=== PATIENT | female | born 1965 | race Caucasian/White ===

== ENCOUNTER 2017-08-18 17:51 | Emergency (ER) | payer MEDICAID ==
[~2017-08-18] VITALS: Ht 160 cm; Wt 61.8 kg
[2017-08-18 18:09] VITALS: BP 118/75
--- NOTE | 2017-08-18 18:16 | NUR ---
AFTER PROVIDING URINE SAMPLE PT AMBULATES BACK TO THE LOBBY
[2017-08-18 22:18] LABS: APPEARANCE,URINE CLEAR (CLEAR); BILIRUBIN,URINE NEGATIVE (NEGATIVE); BLOOD, URINE NEGATIVE (NEGATIVE); LEUKOCYTE ESTERASE ,URINE NEGATIVE (NEGATIVE); NITRITE, URINE NEGATIVE (NEGATIVE); UGLUCOSE NEGATIVE (NEGATIVE)
[2017-08-18 22:19] LABS: COLOR,URINE STRAW (YELLOW)
--- NOTE | 2017-08-18 22:30 | NUR ---
PATIENT AMBULATED TO BED 1
--- NOTE | 2017-08-18 23:05 | NUR ---
PATIENT PRESENTS TO ED WITH LOWER ABDOMINAL PAIN, LABIAL SWELLING, PAINFUL URINATION X2 MONTHS. PT DENIES V/D; SKIN IS PINK/WARM/DRY; AAOX4 WITH EVEN AND STEADY GAIT; LUNGS CLEAR BL; HR EVEN AND REGULAR; PT DENIES ANY FEVER, CP, SOB, OR COUGH AT THIS TIME; PATIENT STATES PAIN OF 8/10 AT THIS TIME; VSS; PATIENT POSITIONED FOR COMFORT; HOB ELEVATED; BEDRAILS UP X1; BED DOWN. ER MD MADE AWARE OF PT STATUS.
[2017-08-19 03:22] VITALS: BP 118/75
[2017-08-21 06:17] LABS: CHLAMYDIA TRACHOMATIS AMP DNA Negative (Negative)
== END 2017-08-19 03:22 | disposition home or self-care (01) ==
LOC: MED 17:51
DX: K59.00 Constipation, unspecified (principal); N39.0 Urinary tract infection, site not specified; N76.0 Acute vaginitis; Z88.5 Allergy status to narcotic agent
CPT/HCPCS: 36415; 74176; 76856; 81003; 87210; 99285; Q0092; 87491

== ENCOUNTER 2017-08-26 08:10 | Emergency (ER) | payer MEDICAID ==
[~2017-08-26] VITALS: Ht 162.6 cm; Wt 60.3 kg
[2017-08-26 08:13] VITALS: BP 101/51
[2017-08-26 09:14] VITALS: BP 105/50
== END 2017-08-26 09:15 | disposition home or self-care (01) ==
LOC: MED 08:10
DX: H60.92 Unspecified otitis externa, left ear (principal); Z88.5 Allergy status to narcotic agent
CPT/HCPCS: 99283

== ENCOUNTER 2017-10-13 18:45 | Emergency (ER) | payer MEDICAID ==
[~2017-10-13] VITALS: Ht 160 cm; Wt 60.8 kg
[2017-10-13 18:57] VITALS: BP 122/69
--- NOTE | 2017-10-13 19:04 | NUR ---
AFTER PROVIDING URINE SAMPLE PT AMBULATES TO BED 7
--- NOTE | 2017-10-13 19:10 | NUR ---
PATIENT PRESENTS TO ED WITH ABDOMINAL PAIN X2 WEEKS INTERMITTENTLY. PT DENIES N/V/D; SKIN IS PINK/WARM/DRY; AAOX4 WITH EVEN AND STEADY GAIT; LUNGS CLEAR BL; HR EVEN AND REGULAR; PT DENIES ANY FEVER, CP, SOB, OR COUGH AT THIS TIME; PATIENT STATES SHARP PAIN OF 8/10 AT THIS TIME WORSENING WHILE SITTING; PATIENT STATES LBM TODAY AT 1PM; PATIENT STATES SHE HAS A REFERRAL TO A GI DOCTOR FOR LATER THIS MONTH FOR "STUDIES" BUT DOES NOT RECALL WHAT THE STUDIES WILL BE; VSS; PATIENT POSITIONED FOR COMFORT; HOB ELEVATED; BEDRAILS UP X1; BED DOWN. ER MD MADE AWARE OF PT STATUS.
[2017-10-13] MEDS ORDERED: FAMOTIDINE 20 MG TAB PO ONE (20:10)
--- NOTE | 2017-10-13 20:52 | NUR ---
LAB AT [facility]
[2017-10-13 20:58] LABS: BASOPHILS % (AUTO) 0.6 % (0.0-2.0); EOSINOPHILS # (AUTO) 0.2 K/uL (0-0.4); HEMATOCRIT 39.9 % (36-48); HEMOGLOBIN 13.1 g/dL (12.0-16.0); LYMPHOCYTES # (AUTO) 2.8 K/uL (2.5-16.5); LYMPHOCYTES % (AUTO) 36.3 % (20.5-51.1); MEAN CORPUSCULAR HEMOGLOBIN 29 pg (27-31); MEAN CORPUSCULAR HGB CONC 33 g/dL (33-37); MEAN CORPUSCULAR VOLUME 86.8 fL (80-94); MONOCYTES # (AUTO) 0.4 K/uL (0.8-1.0); MONOCYTES % (AUTO) 5.6 % (1.7-9.3); NEUTROPHILS # (AUTO) 4.3 K/uL (1.8-7.7); NEUTROPHILS % (AUTO) 55.5 % (42.2-75.2); PLATELET COUNT (AUTO) 225 K/uL (140-450); WHITE BLOOD COUNT (AUTO) 7.7 K/uL (4.8-10.8)
[2017-10-13 21:15] LABS: BILIRUBIN,URINE NEGATIVE (NEGATIVE); BLOOD, URINE NEGATIVE (NEGATIVE); COLOR,URINE YELLOW (YELLOW); LEUKOCYTE ESTERASE ,URINE 1+ (NEGATIVE); NITRITE, URINE NEGATIVE (NEGATIVE); UGLUCOSE NEGATIVE (NEGATIVE)
[2017-10-13 21:17] LABS: APPEARANCE,URINE HAZY (CLEAR)
[2017-10-13 21:17] LABS: ANION GAP 11.8 (8-16); CARBON DIOXIDE 28.5 mmol/L (21-32); POTASSIUM 4.3 mmol/L (3.5-5.1)
[2017-10-13 21:24] LABS: ALBUMIN 3.9 g/dL (3.4-5.0); TOTAL BILIRUBIN 0.2 mg/dL (0.0-1.0)
[2017-10-13 21:34] LABS: RBC,URINE NONE SEEN /HPF (0-5); WBC,URINE 20-60 /HPF (0-5)
[2017-10-13 21:56] VITALS: BP 122/69
--- NOTE | 2017-10-13 21:56 | NUR ---
Patient discharged with v/s stable. Written and verbal after care instructions given and explained. Patient alert, oriented and verbalized understanding of instructions. Ambulatory with steady gait. All questions addressed prior to discharge. ID band removed. Patient advised to follow up with PMD. Rx of ZANTAC given. Patient educated on indication of medication including possible reaction and side effects. Opportunity to ask questions provided and answered.
== END 2017-10-13 21:56 | disposition home or self-care (01) ==
LOC: MED 18:45
DX: K27.9 Peptic ulcer, site unspecified, unspecified as acute or chronic, without hemorrhage or perforation (principal); R10.9 Unspecified abdominal pain; Z88.5 Allergy status to narcotic agent
CPT/HCPCS: 36415; 80053; 81001; 81025; 82150; 83690; 85025; 87086; 99285

== ENCOUNTER 2018-06-16 08:22 | Emergency (ER) | payer MEDICAID ==
[~2018-06-16] VITALS: Ht 160 cm; Wt 61.7 kg
--- NOTE | 2018-06-16 08:25 | NUR ---
PATIENT AMBULATED TO BED 11 AT THIS TIME.
[2018-06-16 08:32] VITALS: BP 157/72
[2018-06-16] MEDS ORDERED: LORazepam 2 MG/ML VIAL IVP ONE (09:00)
[2018-06-16] MEDS ORDERED: KETOROLAC 30 MG/ML VIAL IVP ONE (09:00)
--- NOTE | 2018-06-16 09:15 | NUR ---
REPORT FROM CRYSTAL GARCIA. PT 53 YO FEMALE BIB SELF FOR CHEST PAIN SUBSTERNAL TO RIGHT SIDE 8/10 PAIN. PT DENIES N/V/D; SKIN IS INTACT, PINK/WARM/DRY; AAOX4, PERRL, WITH EVEN AND STEADY GAIT; LUNGS CLEAR BL, BREATHING UNLABORED; HR EVEN AND NSR ON MONITOR, BL PERIPHERAL PULSES PRESENT; BS ACTIVE X4, NO TENDERNESS TO PALPATION, NO HEPATOSPLENOMEGALLY PALPATED, RESONANT TO PERCUSSION; PT DENIES ANY FEVER, CP, SOB, OR COUGH AT THIS TIME; PT STATES 8/10 PAIN AT THIS TIME; VSS; PATIENT POSITIONED FOR COMFORT; HOB ELEVATED; BEDRAILS UP X2; BED DOWN.
[2018-06-16 09:31] LABS: BASOPHILS % (AUTO) 0.6 % (0.0-2.0); EOSINOPHILS # (AUTO) 0.1 K/uL (0-0.4); EOSINOPHILS % (AUTO) 1.6 % (0.0-4.0); HEMATOCRIT 39.1 % (36-48); HEMOGLOBIN 13.1 g/dL (12.0-16.0); LYMPHOCYTES % (AUTO) 32.5 % (20.5-51.1); MEAN CORPUSCULAR HEMOGLOBIN 29 pg (27-31); MEAN CORPUSCULAR HGB CONC 33 g/dL (33-37); MEAN CORPUSCULAR VOLUME 85.2 fL (80-94); MONOCYTES # (AUTO) 0.3 K/uL (0.8-1.0); MONOCYTES % (AUTO) 5.3 % (1.7-9.3); NEUTROPHILS # (AUTO) 3.8 K/uL (1.8-7.7); PLATELET COUNT (AUTO) 229 K/uL (140-450); RED BLOOD CELL COUNT(AUTO) 4.59 MIL/uL (4.20-5.40); RED CELL DISTRIBUTION WIDTH 12.9 % (11.6-13.7); WHITE BLOOD COUNT (AUTO) 6.3 K/uL (4.8-10.8)
[2018-06-16 09:45] LABS: ANION GAP 12.1 (8-16); CARBON DIOXIDE 27.5 mmol/L (21-32); CREATININE 0.8 mg/dL (0.6-1.3); POTASSIUM 3.6 mmol/L (3.5-5.1)
[2018-06-16 09:52] LABS: ALBUMIN 3.7 g/dL (3.4-5.0); TOTAL BILIRUBIN 0.4 mg/dL (0.0-1.0)
[2018-06-16 09:56] LABS: D-DIMER < 100 ng/ml (0-400)
[2018-06-16 09:57] LABS: PROTHROMBIN TIME 10.1 secs (10.8-13.4)
--- NOTE | 2018-06-16 10:00 | NUR ---
PT ON STRETCHER IN SUPINE POSITION WITH EYES OPEN, ALERT AND ORIENTED X 4, RESPIS E/U, ADMITS TO STILL HAVING PAIN, EDMD AWARE. NO IDENTIFIED REQUESTS AT THIS TIME.
--- NOTE | 2018-06-16 11:00 | NUR ---
PT ON STRETCHER IN SUPINE POSITION WITH EYES OPEN, ALERT AND ORIENTED X 4, RESPIS E/U, ADMITS TO HAVING DECREASED PAIN TO A TOLERABLE LEVEL, EDMD AWARE. NO IDENTIFIED REQUESTS AT THIS TIME.
[2018-06-16 12:42] VITALS: BP 120/51
--- NOTE | 2018-06-16 12:50 | NUR ---
Patient discharged with v/s stable. Written and verbal after care instructions given and explained. Patient alert, oriented and verbalized understanding of instructions. Ambulatory with steady gait. All questions addressed prior to discharge. ID band removed. Patient advised to follow up with PMD. Rx of NAPROSYN AND VISTARIL given. Patient educated on indication of medication including possible reaction and side effects. Opportunity to ask questions provided and answered.
== END 2018-06-16 12:50 | disposition home or self-care (01) ==
LOC: MED 08:22
DX: F41.0 Panic disorder [episodic paroxysmal anxiety] (principal); F44.89 Other dissociative and conversion disorders; I10 Essential (primary) hypertension; Z88.5 Allergy status to narcotic agent
CPT/HCPCS: 36415; 71045; 80053; 81002; 81025; 83880; 84484; 85025; 85379; 85610; 85730; 93005; 96374; 99284; J1885; Q0092; J2060

== ENCOUNTER 2019-05-15 14:17 | Emergency (ER) | payer MEDICAID ==
[~2019-05-15] VITALS: Ht 160 cm; Wt 61.2 kg
[2019-05-15 14:32] VITALS: BP 111/68
--- NOTE | 2019-05-15 14:37 | NUR ---
URINE CUP HANDED TO PT FOR SAMPLE
--- NOTE | 2019-05-15 14:59 | NUR ---
PT AMBULATED TO CHAIR C.
--- NOTE | 2019-05-15 15:32 | NUR ---
54 Y/O F C/C COLD SYMPTOMS X3 WEEKS. PER PT ALSO COMPLAINTS OF SORE THROAT/CHILLS. PT NOT UP TO DATE WITH FLU SHOT/NO ONE SICK AT HOME. PT ALLERGIES TO CODEINE, FLEXERIL. NO HX. NO RX. C/C OF NAUSEA PER PT "COMES AND GOES". DENIES V/D. PT ON CHAIR.
[2019-05-15 15:38] LABS: BASOPHILS % (AUTO) 0.5 % (0.0-2.0); EOSINOPHILS # (AUTO) 0.1 K/uL (0-0.4); EOSINOPHILS % (AUTO) 1.7 % (0.0-4.0); HEMATOCRIT 38.7 % (36-48); HEMOGLOBIN 12.7 g/dL (12.0-16.0); LYMPHOCYTES # (AUTO) 2.2 K/uL (2.5-16.5); MEAN CORPUSCULAR HEMOGLOBIN 28 pg (27-31); MEAN CORPUSCULAR HGB CONC 33 g/dL (33-37); MEAN CORPUSCULAR VOLUME 86.6 fL (80-94); MONOCYTES # (AUTO) 0.4 K/uL (0.8-1.0); MONOCYTES % (AUTO) 4.6 % (1.7-9.3); NEUTROPHILS # (AUTO) 5.2 K/uL (1.8-7.7); NEUTROPHILS % (AUTO) 65.2 % (42.2-75.2); PLATELET COUNT (AUTO) 252 K/uL (140-450); RED BLOOD CELL COUNT(AUTO) 4.46 MIL/uL (4.20-5.40); RED CELL DISTRIBUTION WIDTH 13.1 % (11.6-13.7); WHITE BLOOD COUNT (AUTO) 7.9 K/uL (4.8-10.8)
[2019-05-15 15:54] LABS: ANION GAP 13.2 (8-16); CARBON DIOXIDE 29.9 mmol/L (21-32); POTASSIUM 4.1 mmol/L (3.5-5.1)
[2019-05-15 15:54] LABS: APPEARANCE,URINE CLEAR (CLEAR); BILIRUBIN,URINE NEGATIVE (NEGATIVE); BLOOD, URINE NEGATIVE (NEGATIVE); COLOR,URINE YELLOW (YELLOW); LEUKOCYTE ESTERASE ,URINE 1+ (NEGATIVE); NITRITE, URINE NEGATIVE (NEGATIVE); UGLUCOSE NEGATIVE (NEGATIVE)
[2019-05-15 16:04] LABS: ALBUMIN 3.7 g/dL (3.4-5.0); FREE T4 (FREE THYROXINE) 0.97 ng/dL (0.76-1.46); THYROID STIMULATING HORMONE 0.81 uIU/mL (0.34-3.74); TOTAL BILIRUBIN 0.2 mg/dL (0.0-1.0)
[2019-05-15 16:22] VITALS: BP 120/62
[2019-05-15 16:34] LABS: RBC,URINE NONE SEEN /HPF (0-5)
== END 2019-05-15 16:22 | disposition home or self-care (01) ==
LOC: MED 14:17
DX: R53.1 Weakness (principal); N39.0 Urinary tract infection, site not specified; Z88.5 Allergy status to narcotic agent; Z88.8 Allergy status to other drugs, medicaments and biological substances; Z98.890 Other specified postprocedural states
CPT/HCPCS: 36415; 80053; 81001; 84439; 84443; 85025; 87086; 87186; 99283

== ENCOUNTER 2020-10-25 22:22 | Emergency (ER) | payer MEDICAID ==
[~2020-10-25] VITALS: Ht 160 cm; Wt 64.0 kg
[2020-10-25 22:35] VITALS: BP 130/82
[2020-10-25 22:38] VITALS: BP 130/82
--- NOTE | 2020-10-25 22:38 | NUR ---
To ED bed 12.
--- NOTE | 2020-10-25 23:05 | NUR ---
X-Ray at bedside.
[2020-10-25] MEDS ORDERED: KETOROLAC 30 MG/ML VIAL IM ONE (23:20)
[2020-10-25] MEDS ORDERED: NAPR-54 PO (23:48)
--- NOTE | 2020-10-26 00:06 | NUR ---
d/c with VSS. d/c education given. opportunity to ask questions given and answered. rx of naprosyn given.
== END 2020-10-26 00:06 | disposition home or self-care (01) ==
LOC: MED 22:22
DX: S90.121A Contusion of right lesser toe(s) without damage to nail, initial encounter (principal); X58.XXXA Exposure to other specified factors, initial encounter; Y93.9 Activity, unspecified; Y92.89 Other specified places as the place of occurrence of the external cause; Y99.8 Other external cause status; Z88.0 Allergy status to penicillin; Z79.899 Other long term (current) drug therapy
CPT/HCPCS: 73630; 96372; 99283; J1885

== ENCOUNTER 2021-10-18 18:28 | Inpatient (IN) | payer MEDICAID ==
[~2021-10-18] VITALS: Ht 160 cm; Wt 64.9 kg
[~2021-10-18 18:28] MED LIST: NAPR-54 PO
[2021-10-18 18:42] VITALS: BP 122/50
--- NOTE | 2021-10-18 18:48 | NUR ---
PAULO. HANDED ON URINE CUP.
[2021-10-18 20:20] LABS: BASOPHILS % (AUTO) 0.2 % (0.0-2.0); EOSINOPHILS % (AUTO) 0.1 % (0.0-4.0); HEMATOCRIT 39.6 % (36-48); HEMOGLOBIN 13.1 g/dL (12.0-16.0); LYMPHOCYTES # (AUTO) 1.1 K/uL (2.5-16.5); LYMPHOCYTES % (AUTO) 7.1 % (20.5-51.1); MEAN CORPUSCULAR HEMOGLOBIN 28 pg (27-31); MEAN CORPUSCULAR HGB CONC 33 g/dL (33-37); MEAN CORPUSCULAR VOLUME 85.2 fL (80-94); MONOCYTES # (AUTO) 0.3 K/uL (0.8-1.0); MONOCYTES % (AUTO) 1.9 % (1.7-9.3); NEUTROPHILS # (AUTO) 13.6 K/uL (1.8-7.7); NEUTROPHILS % (AUTO) 90.7 % (42.2-75.2); PLATELET COUNT (AUTO) 254 K/uL (140-450); RED BLOOD CELL COUNT(AUTO) 4.65 MIL/uL (4.20-5.40); RED CELL DISTRIBUTION WIDTH 13.4 % (11.6-13.7)
[2021-10-18 20:34] LABS: ALBUMIN 4.1 g/dL (3.4-5.0); ANION GAP 9.7 (8-16); CARBON DIOXIDE 30.2 mmol/L (21-32); CREATININE 0.8 mg/dL (0.6-1.3); POTASSIUM 3.9 mmol/L (3.5-5.1); TOTAL BILIRUBIN 0.3 mg/dL (0.0-1.0)
[2021-10-18] MEDS ORDERED: MORPHINE SULFATE 4 MG/ML SYR IVP ONE (20:50)
[2021-10-18] MEDS ORDERED: NACL 0.9% 1,000 ML IV ONE ×2 (20:50→23:55)
[2021-10-18] MEDS ORDERED: DICYCLOMINE HCL LIQUID 20 MG, ALUMINUM HYD/MAG/SIMETHICONE 30 ML, LIDOCAINE VISCOUS 2% ... PO ONE ×3 (20:50)
[2021-10-18] MEDS ORDERED: ONDANSETRON 4 MG ODT PO ONE (20:50)
--- NOTE | 2021-10-18 20:51 | NUR ---
PT AMBULATED TO BED WITH NURSE
--- NOTE | 2021-10-18 20:55 | NUR ---
56 Y.O F BIB SELF C/O MID ABD PAIN, VOMITING X TODAY. PT STATED SHE HAD SOUP AROUND 1400 AND THEN TOOK SOME HERBAL VITAMINS AND MEDICATION THEN FELT THE ABDOMEN PAIN AT A 9. TH PAIN IS LOCALIZED TO HER UPPER QUADRANTS OF THE ABDOMEN. DENIES HAVING DIAHRREA, CHEST PAIN OR SOB. VITALS WNL, SKIN INTACT, NO PROBLEM URINATING AND STEADY GAIT. PT RESTING IN BED. PMH: DENIES ALLERGIES: CODEINE, CYCLOBENZAPRINE
[2021-10-18] MEDS ORDERED: DICYCLOMINE HCL LIQUID 10 MG/5 ML UDC ONE (20:59)
[2021-10-18] MEDS ORDERED: ALUMINUM HYD/MAG/SIMETHICONE 30 ML UDC ONE (20:59)
--- NOTE | 2021-10-18 22:33 | NUR ---
US AT BEDSIDE
--- NOTE | 2021-10-18 22:58 | NUR ---
ARPITA COLLECTED AND WALKED TO THE LAB.
[2021-10-18] MEDS ORDERED: MORPHINE SULFATE 4 MG/ML SYR IVP PRN ×2 (23:55)
--- NOTE | 2021-10-19 00:35 | NUR ---
Patient will be admitted to care of DR. MERCHANT. Admited to MED SURG. Will go to room 104 A. Belongings list completed. Report to
--- NOTE | 2021-10-19 00:50 | NUR ---
RECEIVED PT FROM ER NURSE, PT ARRIVED VIA GURNEY, AMBULATED TO BED ON HER OWN. AWAKE, ALERT AND ORIENTED. ON ROOM AIR, BREATHING EQUAL AND UNLABORED.SKIN WARM, DRY AND INTACT. IV ON LAC G20, FLUSHING WELL. REPORTS ABDOMINAL PAIN. PRN PAIN MEDICATION WAS GIVEN IN ER WITH A LITTLE RELIEF PER PATIENT. PLAN OF CARE DISCUSSED. MRSA SWAB DONE. ORIENTED TO ROOM AND CALL LIGHT. ALL PRECAUTIONS IN PLACE. CALL LIGHT WITHIN REACH. WILL CONTINUE TO MONITOR.
[2021-10-19 00:56] VITALS: BP 115/61
[2021-10-19] MEDS: MORPHINE SULFATE 2 MG/ML SYR IVP PRN ×2 (01:53→08:21)
--- NOTE | 2021-10-19 01:55 | NUR ---
PT CALLED AND REPORTS 9/10 ABDOMINAL PAIN. PRN PAIN MEDICATION GIVEN. WILL CONTINUE TO MONITOR.
--- NOTE | 2021-10-19 02:44 | NUR ---
PT ASLEEP. BREATHING EQUAL AND UNLABORED, NO S/SX OF DISTRESS NOTED. WILL CONTINUE TO MONITOR.
--- NOTE | 2021-10-19 07:18 | NUR ---
PT IS STABLE. NO ACUTE EVENTS THROUGHOUT THE NIGHT. ALL NEEDS MET.NO S/SX OF DISTRESS NOTED. ALL PRECAUTIONS IN PLACE. CALL LIGHT WITHIN REACH. WILL ENDORSE TO AM SHIFT NURSE.
--- NOTE | 2021-10-19 07:30 | NUR ---
RECEIVED PT CARE AND REPORT FROM YAZAN GARCIA. PT IS RESTING IN BED SEMI-FOWLERS, A&OX4, APPEARS CALM BUT IN PAIN. DENIES ANY SOB OR DISTRESS, COMPLAINS OF 7/10 SHARP PAIN IN ABDOMEN. WILL MEDICATE ORDERED. CALL LIGHT WITHIN REACH, ALL NEEDS MET AT THIS TIME. MAINTAINING NPO ORDERS.
[2021-10-19 08:00] VITALS: BP 101/47
[2021-10-19 08:11] LABS: BASOPHILS % (AUTO) 0.1 % (0.0-2.0); HEMATOCRIT 36.8 % (36-48); HEMOGLOBIN 12.2 g/dL (12.0-16.0); LYMPHOCYTES # (AUTO) 1.2 K/uL (2.5-16.5); LYMPHOCYTES % (AUTO) 9.2 % (20.5-51.1); MEAN CORPUSCULAR HEMOGLOBIN 28 pg (27-31); MEAN CORPUSCULAR HGB CONC 33 g/dL (33-37); MEAN CORPUSCULAR VOLUME 85.4 fL (80-94); MONOCYTES # (AUTO) 0.5 K/uL (0.8-1.0); MONOCYTES % (AUTO) 3.9 % (1.7-9.3); NEUTROPHILS # (AUTO) 11.5 K/uL (1.8-7.7); NEUTROPHILS % (AUTO) 86.8 % (42.2-75.2); PLATELET COUNT (AUTO) 231 K/uL (140-450); RED BLOOD CELL COUNT(AUTO) 4.31 MIL/uL (4.20-5.40); RED CELL DISTRIBUTION WIDTH 13.6 % (11.6-13.7); WHITE BLOOD COUNT (AUTO) 13.3 K/uL (4.8-10.8)
[2021-10-19 08:28] LABS: ANION GAP 8.1 (8-16); CARBON DIOXIDE 27.7 mmol/L (21-32); CREATININE 0.7 mg/dL (0.6-1.3); POTASSIUM 3.8 mmol/L (3.5-5.1)
[2021-10-19 08:34] LABS: CHOL/HDL RATIO 4.1 (1-4.5)
[2021-10-19] MEDS ORDERED: ACETAMINOPHEN 325 MG TAB PO PRN (08:45)
[2021-10-19] MEDS ORDERED: POTASSIUM CHLORIDE 10 MEQ TABER PO PRN (08:45)
[2021-10-19] MEDS ORDERED: ZOLPIDEM 5 MG TAB PO PRN (08:45)
[2021-10-19] MEDS ORDERED: guaiFENesin DM 200/20 MG-10 ML 10 ML UDC PO PRN (08:45)
[2021-10-19] MEDS ORDERED: DOCUSATE SODIUM 100 MG GELCAP PO PRN (08:45)
[2021-10-19] MEDS ORDERED: ONDANSETRON 4 MG/2 ML VIAL IM/IVP PRN (08:45)
[2021-10-19] MEDS ORDERED: HYDROcodone/APAP 7.5/325 MG 1 TAB PO PRN (08:45)
[2021-10-19] MEDS: KETOROLAC 15 MG/ML VIAL IM SCH ×2 (09:00→16:17)
[2021-10-19 09:07] LABS: PROTHROMBIN TIME 10.4 secs (10.8-13.4)
[2021-10-19 09:13] LABS: CHOL/HDL RATIO 4.1 (1-4.5); FREE T4 (FREE THYROXINE) 0.87 ng/dL (0.76-1.46); PHOSPHORUS 2.8 mg/dL (2.5-4.9); THYROID STIMULATING HORMONE 0.26 uIU/mL (0.34-3.74)
[2021-10-19] MEDS: PANTOPRAZOLE 40 MG TABEC PO SCH (09:20)
[2021-10-19] MEDS: DEXT 5% /NACL 0.9% 1,000 ML IV SCH ×2 (09:21→16:17)
--- NOTE | 2021-10-19 10:12 | NUR ---
PATIENT HAS BEEN SCREENED AND CATEGORIZED LOW NUTRITION RISK. PATIENT WILL BE SEEN WITHIN 7 DAYS OF ADMISSION. 10/25/[address]
--- NOTE | 2021-10-19 11:27 | NUR ---
DC PLANNIN YRS OLD MALE PATIENT WAS ADMITTED FROM HOME WITH A DX OF ACUTE PANCREATITIS. PATIENT HAS NO MEDICAL HISTORY. LIPASE LEVEL 9107. ABD X-RAY NEGATIVE. CT ABD/PELVIS SHOWED ENLARGED PANCREASE SUSPICIOUS FOR ACUTE PANCREATITIS . US GALLBLADDER SHOWED PANCREATIC DUCT IS DILATED. KEPT PT NPO, ADMINISTERED IVF AND TORADOL FOR PAIN. CONSULTED WITH GI DR PENNINGTON. DC PLAN TO GO HOME WHEN STABLE. CM TO FOLLOW
--- NOTE | 2021-10-19 11:48 | NUR ---
PT WAS GIVEN SPECIMEN CUP FOR URINE SPECIMEN. INSTRUCTED ON HOW TO USE AND TO CALL WHEN FINISHED.
--- NOTE | 2021-10-19 11:49 | NUR ---
PT COMPLAINING OF TIGHTNESS/HEAVINESS IN ABD. HAS A SENSATION TO PASS GAS AND HAVE BM BUT IS UNABLE TO SINCE YESTERDAY. REPORTED TO DR. SCHUSTER.
--- NOTE | 2021-10-19 11:49 | NUR ---
DC PLANNING PATIENT IS A 56 YR OLD FEMALE ADMITTED TO [facility] ON 10/19 FOR ACUTE PANCREATITIS. SHERRILL MET WITH EBONIE AT BEDSIDE TO GATHER COLLATERAL INFORMATION. PATIENT CONFIRMS LIVING IN A SINGLE STORY HOME WITH HER FAMILY; SPOUSE AND CHILDREN. PATIENT IDENTFIED EMERGENCY CONTACT AND M.D.M ADRY CRUZ () [phone]. PATIENT DENIED HAVING AD IN PLACE AND ACCEPTED AD PACKET OFFERED BY SHERRILL. PATIENT REPORTS MEETING WITH HER PCP NEEDED WITH LAST VISIT 3 WEEKS PRIOR. PATIENT REPORTS SHE HAD AN APPT WITH PCP 10/18/21 THAT NEEDED TO BE CANCELLED SHE CAME TO [facility]. PATIENT DENIES TAKING MEDICATION AT THIS TIME, HOWEVER REPORTED PICKING UP MEDICATION FROM [employer] IN [place], WHEN NEEDED. PATIENT REPORTS BEING INDEPENDENT IN ALL ACTIVITIES AND DENIES USE OF DME. PATIENT DENIES HX OF DIALYSIS OR HH. PATIENT REPORTS DC PLANS IS TO RETURN HOME WITH PROVIDING TRANSPORTATION AND FRIENDS OR FAMILY AIDING IN CARE, IF REQUIRED. SW INQUIRED ON RESOURCES NEEDED, PATIENT DECLINED AT THIS TIME.
[2021-10-19 12:57] LABS: APPEARANCE,URINE CLEAR (CLEAR); BILIRUBIN,URINE NEGATIVE (NEGATIVE); BLOOD, URINE NEGATIVE (NEGATIVE); COLOR,URINE YELLOW (YELLOW); LEUKOCYTE ESTERASE ,URINE NEGATIVE (NEGATIVE); NITRITE, URINE NEGATIVE (NEGATIVE); UGLUCOSE NEGATIVE (NEGATIVE)
[2021-10-19 13:10] LABS: OTHER CASTS, URINE None Seen /LPF (None Seen); RBC,URINE 0-5 /HPF (0-5); WBC,URINE 0-5 /HPF (0-5)
[2021-10-19 13:12] LABS: BARBITURATE, URINE NEGATIVE ng/ml (NEG <=200); BENZODIAZEPINE, URINE NEGATIVE ng/mL (NEG <=200); CANNABINOID, URINE NEGATIVE ng/mL (NEG <=50); COCAINE, URINE NEGATIVE ng/mL (NEG <=300); OPIATE, URINE POSITIVE ng/mL (NEG <=2000); PHENCYCLIDINE SCREEN,URINE NEGATIVE ng/mL (NEG <=25)
[2021-10-19 16:00] VITALS: BP 110/53
--- NOTE | 2021-10-19 17:00 | NUR ---
PT HAS CONCERNS ABOUT CARE SHE IS RECEIVING AND IS THINKING OF GOING AMA. PT EDUCATED ABOUT AMA AND PT DECIDED TO STAY. DR. SCHUSTER AWARE.
--- NOTE | 2021-10-19 17:16 | NUR ---
REPLACED D5 NS BAG AT THIS TIME.
--- NOTE | 2021-10-19 18:18 | NUR ---
PT IS RESTING IN BED SUPINE, A&OX4, APPEARS CALM. FAMILY AT BEDSIDE. NO VISIBLE S/S OF DISTRESS OR DISCOMFORT. DENIES SOB AND ONLY 3/10 PAIN IN ABD. CALL LIGHT WITHIN REACH, ALL NEEDS MET AT THIS TIME. Addendum: 10/19/21 at 1820 by Agency Nurse 15, JOSE RN WILL ENDORSE TO NOC SHIFT.
--- NOTE | 2021-10-19 20:00 | NUR ---
Patient's Plan of Care was discussed and reviewed with SITE SPECIALIST: RADU BENTON
[2021-10-20] VITALS: BP 108/65
[2021-10-20] MEDS: KETOROLAC 15 MG/ML VIAL IM SCH (00:28)
--- NOTE | 2021-10-20 06:00 | NUR ---
IS HAVING SEVERE ABDOMINAL PAIN DR MERCHANT CALLED TORADOL 15 MG PO ORDERED
[2021-10-20] MEDS ORDERED: KETOROLAC 10 MG TAB PO PRN (06:40)
--- NOTE | 2021-10-20 06:45 | NUR ---
PT WANTS TO SEE MD STATES SHE WAS NOTSEEN YESTERDAY WANTS IV TORADOL
[2021-10-20 07:29] LABS: BASOPHILS % (AUTO) 0.1 % (0.0-2.0); EOSINOPHILS # (AUTO) 0.1 K/uL (0-0.4); EOSINOPHILS % (AUTO) 0.7 % (0.0-4.0); HEMATOCRIT 34.7 % (36-48); HEMOGLOBIN 11.7 g/dL (12.0-16.0); LYMPHOCYTES # (AUTO) 1.5 K/uL (2.5-16.5); LYMPHOCYTES % (AUTO) 12.1 % (20.5-51.1); MEAN CORPUSCULAR HEMOGLOBIN 29 pg (27-31); MEAN CORPUSCULAR HGB CONC 34 g/dL (33-37); MEAN CORPUSCULAR VOLUME 86.3 fL (80-94); MONOCYTES # (AUTO) 0.6 K/uL (0.8-1.0); MONOCYTES % (AUTO) 4.8 % (1.7-9.3); NEUTROPHILS # (AUTO) 10.3 K/uL (1.8-7.7); NEUTROPHILS % (AUTO) 82.3 % (42.2-75.2); PLATELET COUNT (AUTO) 222 K/uL (140-450); RED BLOOD CELL COUNT(AUTO) 4.02 MIL/uL (4.20-5.40); RED CELL DISTRIBUTION WIDTH 13.9 % (11.6-13.7); WHITE BLOOD COUNT (AUTO) 12.5 K/uL (4.8-10.8)
[2021-10-20 07:33] LABS: ANION GAP 7.3 (8-16); CARBON DIOXIDE 29.1 mmol/L (21-32); CREATININE 0.7 mg/dL (0.6-1.3); POTASSIUM 3.4 mmol/L (3.5-5.1)
[2021-10-20 07:36] LABS: AMYLASE 298 U/L (25-115); LIPASE 1020 U/L (73-393)
[2021-10-20] MEDS ORDERED: KETOROLAC 15 MG/ML VIAL IM PRN (07:50)
[2021-10-20 08:07] LABS: T4 (THYROXINE) 7.6 ug/dL (4.5-12.0)
--- NOTE | 2021-10-20 08:12 | NUR ---
GOT REPORT FROM NIGHT NURSE, PT IN BED SAYS GOOD MORNING, INTRODUCED MY SELF.[id number]
[2021-10-20] MEDS: DEXT 5% /NACL 0.9% 1,000 ML IV SCH ×2 (08:45→09:57)
[2021-10-20] MEDS: PANTOPRAZOLE 40 MG TABEC PO SCH (09:56)
[2021-10-20] MEDS ORDERED: KETOROLAC 30 MG/ML VIAL IVP PRN (12:40)
[2021-10-20 16:00] VITALS: BP 105/49
[2021-10-20] MEDS ORDERED: NACL 0.9% 1,000 ML IV SCH (16:10)
--- NOTE | 2021-10-20 17:23 | NUR ---
NEW IV STARTED WITH 24G ON THE RIGHT FOR ARM , PT COMPLAINING NAUSEA BUT DO NOT WANT TO TAKE ZOFRAN YET.[id number]
--- NOTE | 2021-10-20 17:59 | NUR ---
THERE'S A LEAK IN THE PATIENT ROOM NEAR THE DOOR FROM THE CEILING, AND I ASKED THEM THAT I WILL TRANSFER THE PATIENT TO ANOTHER ROOM, FAMILY REFUSED.THEY HAVE CONCERN ALSO THAT SHE NEEDS TO TRANSFER TO ANOTHER HOSPITAL AND I CALLED DR. MERCHANT TO TALK TO THEM.
--- NOTE | 2021-10-20 18:04 | NUR ---
NOTIFIED [employer] HOUSE SITTER ADAN TO TALK TO THEM.
--- NOTE | 2021-10-20 18:56 | NUR ---
PT SIGNED AMA, LEFT THE UNIT IV REMOVED SO ALSO THE ID BAND, ESCORTED TO THE CAR. [id number]
== END 2021-10-20 19:00 | disposition left against medical advice (07) | DRG 282 ==
LOC: MED 18:28 → MTU 10-19 00:09
DX: K85.90 Acute pancreatitis without necrosis or infection, unspecified (principal); R65.10 Systemic inflammatory response syndrome (SIRS) of non-infectious origin without acute organ dysfunction; E05.90 Thyrotoxicosis, unspecified without thyrotoxic crisis or storm; E78.2 Mixed hyperlipidemia; E86.0 Dehydration; E87.6 Hypokalemia; Z53.29 Procedure and treatment not carried out because of patient's decision for other reasons; Z20.822 Contact with and (suspected) exposure to COVID-19; Z79.899 Other long term (current) drug therapy; Z88.5 Allergy status to narcotic agent; Z88.8 Allergy status to other drugs, medicaments and biological substances
CPT/HCPCS: 36415; 74018; 76705; 80048; 80053; 80305; 81001; 82150; 83036; 83690; 83735; 83880; 84100; 84436; 84439; 84443; 84479; 85025; 85610; 85730; 87081; 96361; 96374; 99285; J1885; J2270; J7030; Q0092; Q0162